=== PATIENT | female | born 2005 | race Two or more races ===

== ENCOUNTER 2024-07-29 04:46 | Emergency (ER) | payer MEDICAID, SELFPAY ==
[2024-07-29 04:56] VITALS: BP 133/88; PULSE 117; RESP 20; TEMP 36.8; O2SAT 96; BMI 31.2
[2024-07-29 05:08] LABS: Appearance Urine Slightly Cloudy (Clear); Bilirubin Urine Negative (Negative); Blood Urine 2+ (Negative); Color Urine Yellow (Yellow); Glucose Urine Negative (Negative); Ketones Urine Negative (Negative); Leukocyte Esterase Urine Negative (Negative); Nitrite Urine Negative (Negative); Protein Urine Negative (Negative); Urobilinogen Urine 0.2 (0.2-1.0)
--- NOTE | 2024-07-29 05:12 | ED.GENADULT ---
HPI - General Adult General Date Seen: 07/29/24 <Angelita Angel MD - Last Filed: 07/30/24 08:15> Chief complaint: Nausea/Vomiting <Angelita Angel MD - Last Filed: 07/30/24 08:15> Stated complaint: Abdominal pain, vomitting <Angelita Angel MD - Last Filed: 07/30/24 08:15> Time Seen by Provider: 07/29/24 05:06 <Angelita Angel MD - Last Filed: 07/30/24 08:15> History of Present Illness HPI narrative: Patient is a 18-year-old young woman who is a [employer] student originally from [place]. She presents for evaluation of right lower quadrant pain which she says started abruptly around midnight. She vomited once just before the pain started and again about an hour later. She denies diarrhea. Pain has persisted in the same location. She has not had fevers, denies urinary symptoms. She just finished her menses which was normal. She denies any history of sexual activity. No abdominal surgeries, denies other medical history. <Angelita Angel MD - Last Filed: 07/30/24 08:15> Related Data Home medications: Home Medications ?Medication ?Instructions ?Recorded ?Confirmed No Known Home Medications 07/29/24 07/29/24 <Angelita Angel MD - Last Filed: 07/30/24 08:15> Allergies/adverse reactions: Allergies Allergy/AdvReac Type Severity Reaction Status Date / Time No Known Drug Allergies Allergy Verified 07/29/24 06:07 <Angelita Angel MD - Last Filed: 07/30/24 08:15> Review of Systems Status of ROS: Reports: 10 or more systems reviewed and unremarkable except as noted in History and below <Angelita Angel MD - Last Filed: 07/30/24 08:15> [facility] Medical History: Medical History No significant past medical history <Angelita Angel MD - Last Filed: 07/30/24 08:15> Surgical History: Surgical History No significant past surgical history <Angelita Angel MD - Last Filed: 07/30/24 08:15> Social History: Social History Smoking Status: Never smoker Second hand tobacco smoke exposure: No How often do you have a drink containing alcohol: never AUDIT-C Alcohol total score: 0 Non-prescribed substance use: denies use <Angelita Angel MD - Last Filed: 07/30/24 08:15> Exam Narrative: Exam Narrative: Vital signs reviewed In general, alert, nontoxic young woman. Head: Normocephalic, atraumatic. Eyes: Sclera clear. Pupils equal and reactive. ENT: Mucous membranes moist. Neck: Supple without adenopathy. Heart: Regular rate and rhythm without murmur. Lungs: Clear. No increased work of breathing, crackles or wheezes. Abdomen: Soft, nondistended. She has mild right lower quadrant tenderness without rebound guarding or rigidity. Abdomen is otherwise nontender. Tenderness is consistent with McBurney's point. Extremities: Well perfused, pulses intact. No significant edema. Neurologic: Alert, conversant. Speech fluent, face symmetric. Moves all extremities equally. Skin: Warm, dry well perfused. Affect: Normal. <Angelita Angel MD - Last Filed: 07/30/24 08:15> Const: Vital Signs, click to edit/add: Vital Signs - 24 hr 07/29/24 10:00 Pulse Rate [Right Pulse Oximeter] 72 Respiratory Rate 16 Blood Pressure [Ri ght Upper Arm] 118/66 Pulse Oximetry 98 Oxygen Delivery Me thod Room Air <Angelita Angel MD - Last Filed: 07/30/24 08:15> Vital Signs, click to edit/add: Vital Signs - 24 hr 07/29/24 10:00 Pulse Rate [Right Pulse Oximeter] 72 Respiratory Rate 16 Blood Pressure [Ri ght Upper Arm] 118/66 Pulse Oximetry 98 Oxygen Delivery Me thod Room Air <Luis Manuel Gagnon MD - Last Filed: 07/29/24 10:43> Course Course ED Course: Patient presents with several hours of right lower quadrant pain with a couple episodes of vomiting. No diarrhea to more clearly suggest gastroenteritis. She does have tenderness at McBurney's point. Appendicitis is a possibility, other diagnostic considerations would include kidney stone, ovarian cyst or torsion, ectopic , urinary tract infection or pyelonephritis among others. I think it is reasonable to do a CT scan to evaluate for for appendicitis or other pelvic pathology. Will give some Toradol and Zofran for symptomatic relief. Symptomatically, she feels somewhat improved after medications. Her UA is fairly unremarkable, test is negative. Other labs reviewed without significant findings aside from anemia with a hemoglobin of 10.2 baseline not known. I reviewed her CT scans. She has 2 large cystic structures in the abdomen which are presumably of ovarian origin. Radiology read reviewed, they do feel that these are likely 2 cysts rather than 1 cyst and her bladder. I think clinically this makes more sense that she does not have a strong urge to void and had voided shortly prior to CT scan. I spoke with Dr. Beltran, will obtain an ultrasound just to make sure there is no evidence of torsion. She will need additional evaluation per gynecology recommendations. <Angelita Angel MD - Last Filed: 07/30/24 08:15> Reevaluation(s) Time of Reevaluation #1: 09:58 <Luis Manuel Gagnon MD - Last Filed: 07/29/24 10:43> Reevaluation #1: Patient's pain is totally gone away at this point, this likely is because she had 800 mL of urine, and was in acute retention we will leave the catheter and I discussed with , she will see her in follow-up Wednesday or Wednesday, then consider taking the catheter out, and will have consideration for laparoscopic surgery in the future. Tylenol for the discomfort and give her something stronger she wants, but this time she did not want anything for pain. I think if she has increasing abdominal pain fevers chills nausea vomiting she has come back to the emergency room. Her basic metabolic profile was normal, with normal creatinine. Patient is requesting some pain medication go home with 10 tablets of Percocet, is prescribed via instymeds. <Luis Manuel Gagnon MD - Last Filed: 07/29/24 10:43> Time of Reevaluation #2: 10:26 <Luis Manuel Gagnon MD - Last Filed: 07/29/24 10:43> Reevaluation #2: [address] [address] Diagnostic Imaging Report Patient: Na Rivera MR#: [id number] : 2005 Acct:[id number] Loc: ED Service Date: 07/29/[address]: Ordering Physician: Angelita Angel M.D. Date of Service: 07/29/24 Procedure(s): US pelvic TA and TV Accession Number(s): [id number] cc: Angelita Angel M.D.; Provider,Not a Local~ For Patients: As a result of the Cures Act, medical imaging exams and procedure reports are released immediately into your electronic medical record. You may view this report before your referring provider. If you have questions, please contact your health care provider. INDICATION: Large ovarian cysts TECHNIQUE: Ultrasound pelvis transabdominal and transvaginal for better assessment or to better visualize the endometrium. Real-time sonographic images with spectral and color Doppler imaging of the ovaries were obtained. COMPARISON: Same day CT abdomen pelvis. FINDINGS: Uterus: 6.6 x 3.4 x 4.3 centimeters. Normal echotexture of the myometrium. No masses. Endometrium: Transvaginal imaging was performed to better evaluate the endometrium. Endometrial thickness measures 7 mm. No sign of endometrial mass or fluid. Right ovary 12.8 x 6.8 x 10.4 centimeters, with right ovarian cyst measuring 12 x 6.2 x 9.6 centimeters. Some images suggest appearance of papillary projection, but this region demonstrates obtuse angle with the cyst, does not demonstrate internal color flow and is continuous with ovarian tissue, making papillary projection less likely. Left ovary 3.6 x 1.8 x 2.9 centimeters. Normal arterial and venous blood flow is demonstrated in both ovaries. Cul-de-sac: No significant free fluid. IMPRESSION: There is a 12 x 6.2 x 9.6 centimeter cyst in the right ovary (O-RADS 3). The size of the cyst increases risk for right ovarian torsion. If not surgically excised, follow-up ultrasound can be considered in 6 months. Dictated by Wanda Cobb MD @ 07/29/2024 10:08:12 AM (Electronically Signed) I spoke to gynecology again, she was reassured by this and suggested discharge with follow-up with her in the clinic, for discuss surgery, and then also to trial catheter removal. Patient was comfortable this plan will be discharged <Luis Manuel Gagnon MD - Last Filed: 07/29/24 10:43> Vital Signs Vital signs: Initial Vital Signs Temperature 98.2 F 07/29/24 04:56 Temperature Source Temporal Artery Scan 07/29/24 04:56 Pulse Rate 117 H 07/29/24 04:56 Respiratory Rate 20 07/29/24 04:56 Blood Pressure 133/88 07/29/24 04:56 Blood Pressure Mean 103 07/29/24 04:56 Blood Pressure Position Sitting 07/29/24 04:56 Pulse Oximetry 96 07/29/24 04:56 Oxygen Delivery Method Room Air 07/29/24 04:56 Vital Signs Temperature 98.2 F 07/29/24 04:56 Pulse Rate 117 H 07/29/24 04:56 Respiratory Rate 20 07/29/24 04:56 Blood Pressure 133/88 07/29/24 04:56 Pulse Oximetry 96 07/29/24 04:56 Oxygen Delivery Method Room Air 07/29/24 04:56 Temperature 98.2 F 07/29/24 06:26 Pulse Rate 72 07/29/24 10:00 Respiratory Rate 16 07/29/24 10:00 Blood Pressure 118/66 07/29/24 10:00 Pulse Oximetry 98 07/29/24 10:00 Oxygen Delivery Method Room Air 07/29/24 10:00 <Angelita Angel MD - Last Filed: 07/30/24 08:15> Initial Vital Signs Temperature 98.2 F 07/29/24 04:56 Temperature Source Temporal Artery Scan 07/29/24 04:56 Pulse Rate 117 H 07/29/24 04:56 Respiratory Rate 20 07/29/24 04:56 Blood Pressure 133/88 07/29/24 04:56 Blood Pressure Mean 103 07/29/24 04:56 Blood Pressure Position Sitting 07/29/24 04:56 Pulse Oximetry 96 07/29/24 04:56 Oxygen Delivery Method Room Air 07/29/24 04:56 Vital Signs Temperature 98.2 F 07/29/24 04:56 Pulse Rate 117 H 07/29/24 04:56 Respiratory Rate 20 07/29/24 04:56 Blood Pressure 133/88 07/29/24 04:56 Pulse Oximetry 96 07/29/24 04:56 Oxygen Delivery Method Room Air 07/29/24 04:56 Temperature 98.2 F 07/29/24 06:26 Pulse Rate 72 07/29/24 10:00 Respiratory Rate 16 07/29/24 10:00 Blood Pressure 118/66 07/29/24 10:00 Pulse Oximetry 98 07/29/24 10:00 Oxygen Delivery Method Room Air 07/29/24 10:00 <Luis Manuel Gagnon MD - Last Filed: 07/29/24 10:43> Medications Administered Medications: Discontinued Medications Generic Name Dose Route Start Last Admin Trade Name Freq PRN Reason Stop Dose Admin Sodium Chloride 500 mls @ 500 mls/hr 07/29/24 05:11 07/29/24 06:10 0.9 % Sodium Chloride 500 Ml IV 07/29/24 06:10 Infused .Q1H ONE Infusion Ketorolac Tromethamine 15 mg 07/29/24 05:11 07/29/24 05:16 Ketorolac 15 Mg/Ml Inj IVP 07/29/24 05:12 15 mg ONCE ONE Administration Morphine Sulfate 4 mg 07/29/24 07:53 07/29/24 07:58 Morphine 4 Mg/Ml Inj IVP 07/29/24 07:54 4 mg ONCE ONE Administration Ondansetron HCl 4 mg 07/29/24 05:11 07/29/24 05:16 Ondansetron 2 Mg/Ml Inj IVP 07/29/24 05:12 4 mg ONCE ONE Administration <Angelita Angel MD - Last Filed: 07/30/24 08:15> Discontinued Medications Generic Name Dose Route Start Last Admin Trade Name Freq PRN Reason Stop Dose Admin Sodium Chloride 500 mls @ 500 mls/hr 07/29/24 05:11 07/29/24 06:10 0.9 % Sodium Chloride 500 Ml IV 07/29/24 06:10 Infused .Q1H ONE Infusion Ketorolac Tromethamine 15 mg 07/29/24 05:11 07/29/24 05:16 Ketorolac 15 Mg/Ml Inj IVP 07/29/24 05:12 15 mg ONCE ONE Administration Morphine Sulfate 4 mg 07/29/24 07:53 07/29/24 07:58 Morphine 4 Mg/Ml Inj IVP 02/15/25 07:54 4 mg ONCE ONE Administration Ondansetron HCl 4 mg 07/29/24 05:11 07/29/24 05:16 Ondansetron 2 Mg/Ml Inj IVP 07/29/24 05:12 4 mg ONCE ONE Administration <Luis Manuel Gagnon MD - Last Filed: 07/29/24 10:43> Medical Decision Making Lab Data Lab results reviewed: Yes I reviewed the patient's lab results <Angelita Angel MD - Last Filed: 07/30/24 08:15> Labs: Lab Results 07/29/24 07/29/24 Range/Units 04:58 05:15 WBC 7.47 (4.50-11.00) K/uL RBC 4.82 (4.00-5.20) m/uL Hgb 10.2 L (12.0-16.0) gm/dL Hct 34.7 (33.0-51.0) % MCV 72 L (80-100) fL MCH 21 L (26-34) pg MCHC 29 L (32-36) gm/dL RDW Coeff of Claudio 15.6 H (11.5-15.5) % Plt Count 358 (140-440) K/uL Neut % (Auto) 80.2 H (42.0-72.0) % Lymph % (Auto) 14.5 L (20-44) % Quay % (Auto) 3.6 (0.0-11.0) % Eos % (Auto) 0.3 (0.0-7.0) % Baso % (Auto) 0.3 (0.0-3.0) % Neut # (Auto) 6.00 (1.7-7.0) K/uL Lymph # (Auto) 1.10 (0.90-2.90) K/uL Quay # (Auto) 0.30 (0.00-0.90) K/UL Eos # (Auto) 0.02 (0.00-0.50) K/uL Baso # (Auto) 0.02 (0.00-0.30) K/uL Abs Immat Gran (auto) 0.08 (0.00-0.30) K/uL Imm/Tot Granulo (auto) 1.1 % Sodium 140 (135-149) mmol/L Potassium 3.8 (3.6-5.1) mmol/L Chloride 105 (96-114) mmol/L Carbon Dioxide 22 (20-32) mmol/L Anion Gap 13 (7-15) mEq/L BUN 7 (5-24) mg/dL Creatinine 0.4 L (0.5-1.5) mg/dL Estimated Creat Clear 161.15 Estimated GFR 145 ml/min Glucose 133 H (60-115) mg/dL Calcium 9.4 (8.4-10.6) mg/dL Lactate Dehydrogenase 225 (120-246) U/L C-Reactive Protein < 0.5 L (0.5-1.0) mg/dL Urine Color Yellow (Yellow) Urine Appearance Slightly Cloudy A (Clear) Urine pH 8.0 (5.0-8.5) Ur Specific Benton 1.020 (1.000-1.030) Urine Protein Negative (Negative) Urine Glucose (UA) Negative (Negative) Urine Ketones Negative (Negative) Urine Blood 2+ A (Negative) Urine Nitrite Negative (Negative) Urine Bilirubin Negative (Negative) Urine Urobilinogen 0.2 (0.2-1.0) Ur Leukocyte Esterase Negative (Negative) Urine RBC 2-5 A (0-2) Urine WBC 0-2 (0-5) Ur Squamous Epith Cells Few (None-Few) Urine Bacteria None (None) Urine HCG, Qual Negative (Negative) <Angelita Angel MD - Last Filed: 07/30/24 08:15> Lab Results 07/29/24 07/29/24 Range/Units 04:58 05:15 WBC 7.47 (4.50-11.00) K/uL RBC 4.82 (4.00-5.20) m/uL Hgb 10.2 L (12.0-16.0) gm/dL Hct 34.7 (33.0-51.0) % MCV 72 L (80-100) fL MCH 21 L (26-34) pg MCHC 29 L (32-36) gm/dL RDW Coeff of Claudio 15.6 H (11.5-15.5) % Plt Count 358 (140-440) K/uL Neut % (Auto) 80.2 H (42.0-72.0) % Lymph % (Auto) 14.5 L (20-44) % Quay % (Auto) 3.6 (0.0-11.0) % Eos % (Auto) 0.3 (0.0-7.0) % Baso % (Auto) 0.3 (0.0-3.0) % Neut # (Auto) 6.00 (1.7-7.0) K/uL Lymph # (Auto) 1.10 (0.90-2.90) K/uL Quay # (Auto) 0.30 (0.00-0.90) K/UL Eos # (Auto) 0.02 (0.00-0.50) K/uL Baso # (Auto) 0.02 (0.00-0.30) K/uL Abs Immat Gran (auto) 0.08 (0.00-0.30) K/uL Imm/Tot Granulo (auto) 1.1 % Sodium 140 (135-149) mmol/L Potassium 3.8 (3.6-5.1) mmol/L Chloride 105 (96-114) mmol/L Carbon Dioxide 22 (20-32) mmol/L Anion Gap 13 (7-15) mEq/L BUN 7 (5-24) mg/dL Creatinine 0.4 L (0.5-1.5) mg/dL Estimated Creat Clear 161.15 Estimated GFR 145 ml/min Glucose 133 H (60-115) mg/dL Calcium 9.4 (8.4-10.6) mg/dL Lactate Dehydrogenase 225 (120-246) U/L C-Reactive Protein < 0.5 L (0.5-1.0) mg/dL Urine Color Yellow (Yellow) Urine Appearance Slightly Cloudy A (Clear) Urine pH 8.0 (5.0-8.5) Ur Specific Benton 1.020 (1.000-1.030) Urine Protein Negative (Negative) Urine Glucose (UA) Negative (Negative) Urine Ketones Negative (Negative) Urine Blood 2+ A (Negative) Urine Nitrite Negative (Negative) Urine Bilirubin Negative (Negative) Urine Urobilinogen 0.2 (0.2-1.0) Ur Leukocyte Esterase Negative (Negative) Urine RBC 2-5 A (0-2) Urine WBC 0-2 (0-5) Ur Squamous Epith Cells Few (None-Few) Urine Bacteria None (None) Urine HCG, Qual Negative (Negative) <Luis Manuel S Seper, MD - Last Filed: 07/29/24 10:43> Imaging Data CT scan - abdomen: Attestation: I have reviewed the pertinent imaging results. <Angelita Angel MD - Last Filed: 07/30/24 08:15> Radiologist's impression: [address] [address] Diagnostic Imaging Report Patient: Na Rivera MR#: [id number] : 2005 Acct:[id number] Loc: ED Service Date: 07/29/[address]: Ordering Physician: Angelita Angel M.D. Date of Service: 07/29/24 Procedure(s): CT abdomen pelvis w con Accession Number(s): [id number] cc: Angelita Angel M.D.; Provider,Not a Local~ ADDENDUM INDICATION: Right lower quadrant pain and vomiting. COMPARISON: None. TECHNIQUE: CT of the abdomen and pelvis with intravenous contrast. Multiplanar axial, coronal, and sagittal reformats were reconstructed. Contrast: 79 mL Isovue 370. FINDINGS: Lung bases: Normal. Liver: Normal. No mass. Gallbladder and bile ducts: Normal gallbladder. No bile duct dilation. Pancreas: Normal. Spleen: Normal. Adrenal glands: Normal. Kidneys: Normal parenchyma. No cyst or solid mass. No calculi. Mild right pelviectasis and proximal ureterectasis. Urinary bladder: The urinary bladder is empty. Pelvis: There are 2 large pelvic cyst the more superior in the right lower quadrant and central abdomen measures 6.5 x 11.8 x 10.6 centimeters. The more inferior and anterior cyst definitely mimics the urinary bladder but is anterior to the bladder base and urethra. See series 2, image 143. This cyst measures 7.0 x 8.2 x 14.0 cm. Neither of the cyst have any macroscopic fat or calcification. No definitive nodular soft tissue components seen by CT but the right ovary is seen between the 2 cysts. See coronal image series 4, image 41. The left ovary is down in the left pelvis and is mildly enlarged with multiple small follicles. Vessels: Normal. Bowel: No dilated or inflamed bowel. Normal appendix, above the superior cyst. No colonic diverticuli. Mild stool burden. Lymph nodes: No adenopathy. Peritoneum: Trace pelvic free fluid. No peritoneal thickening or nodularity appreciated. Abdominal wall: No hernia. Bones: No fractures. No focal worrisome bone lesions. IMPRESSION: 1. There are 2 very large cystic lesions that both appear to arise from the right ovary. These measure 11.8 and 14.0 centimeters. These are too large to be accurately characterized by ultrasound. If further imaging is needed, pelvic MRI without and with IV contrast is recommended. Recommend gynecologic surgical referral. 2. There is some mild right urinary tract dilatation due to mass effect on the ureter between the cyst and the psoas muscle. Please note that all CT scans at this facility use dose modulation, iterative reconstruction, and/or weight-based dosing when appropriate to reduce radiation dose to as low as reasonably achievable. Dictated by Lynn Gann MD @ 07/29/2024 6:39:55 AM ----- ADDENDUM ----- The lower of the 2 cystic structures described could potentially be the bladder, but several series certainly indicate that the bladder is slightly more posterior in compressed. Recommend postvoid imaging to be definitive. Dictated by Lynn Gann MD @ Jul 29 2024 6:40AM (Electronically Signed) For Patients: As a result of the Century Cures Act, medical imaging exams and procedure reports are released immediately into your electronic medical record. You may view this report before your referring provider. If you have questions, please contact your health care provider. INDICATION: Right lower quadrant pain and vomiting. COMPARISON: None. TECHNIQUE: CT of the abdomen and pelvis with intravenous contrast. Multiplanar axial, coronal, and sagittal reformats were reconstructed. Contrast: 79 mL Isovue 370. FINDINGS: Lung bases: Normal. Liver: Normal. No mass. Gallbladder and bile ducts: Normal gallbladder. No bile duct dilation. Pancreas: Normal. Spleen: Normal. Adrenal glands: Normal. Kidneys: Normal parenchyma. No cyst or solid mass. No calculi. Mild right pelviectasis and proximal ureterectasis. Urinary bladder: The urinary bladder is empty. Pelvis: There are 2 large pelvic cyst the more superior in the right lower quadrant and central abdomen measures 6.5 x 11.8 x 10.6 centimeters. The more inferior and anterior cyst definitely mimics the urinary bladder but is anterior to the bladder base and urethra. See series 2, image 143. This cyst measures 7.0 x 8.2 x 14.0 cm. Neither of the cyst have any macroscopic fat or calcification. No definitive nodular soft tissue components seen by CT but the right ovary is seen between the 2 cysts. See coronal image series 4, image 41. The left ovary is down in the left pelvis and is mildly enlarged with multiple small follicles. Vessels: Normal. Bowel: No dilated or inflamed bowel. Normal appendix, above the superior cyst. No colonic diverticuli. Mild stool burden. Lymph nodes: No adenopathy. Peritoneum: Trace pelvic free fluid. No peritoneal thickening or nodularity appreciated. Abdominal wall: No hernia. Bones: No fractures. No focal worrisome bone lesions. IMPRESSION: 1. There are 2 very large cystic lesions that both appear to arise from the right ovary. These measure 11.8 and 14.0 centimeters. These are too large to be accurately characterized by ultrasound. If further imaging is needed, pelvic MRI without and with IV contrast is recommended. Recommend gynecologic surgical referral. 2. There is some mild right urinary tract dilatation due to mass effect on the ureter between the cyst and the psoas muscle. Please note that all CT scans at this facility use dose modulation, iterative reconstruction, and/or weight-based dosing when appropriate to reduce radiation dose to as low as reasonably achievable. Dictated by Lynn Gann MD @ 07/29/2024 6:39:55 AM <Angelita Angel MD - Last Filed: 07/30/24 08:15> Discharge Plan Discharge Clinical Impression: Ovarian cyst, Abdominal pain, Acute urinary retention <Angelita Angel MD - Last Filed: 07/30/24 08:15> Patient Disposition: Home, Self-Care <Angelita Angel MD - Last Filed: 07/30/24 08:15> Condition: Improved <Angelita Angel MD - Last Filed: 07/30/24 08:15> Instructions: Ovarian Cyst (ED), Negron Catheter Placement and Care (ED), Acute Urinary Retention in Women (ED), Abdominal Pain (ED), Ovarian Cyst Removal (DC) <Angelita Angel MD - Last Filed: 07/30/24 08:15> Additional Instructions: Arrest, leave catheter in. Follow-up with gynecology Wednesday or Wednesday, per that discussion. At that point take consider pulling out the catheter. Return back here if increasing abdominal pain, fevers chills, or other issues. I would recommend Tylenol, 1 g by mouth twice daily. This will help with the discomfort from the catheter. I can give you something stronger if you want such as a morphine base medication if you find that is helpful but I believe your pain just improved with the catheterization. Return back here if increasing abdominal pain fevers chills nausea vomiting, or other issues. <Angelita Angel MD - Last Filed: 07/30/24 08:15> Activity Level: Light activity <Angelita Angel MD - Last Filed: 07/30/24 08:15> Light activity <Luis Manuel Gagnon MD - Last Filed: 07/29/24 10:43> Prescriptions: No Action No Known Home Medications <Angelita Angel MD - Last Filed: 07/30/24 08:15> Follow Up/Referrals: Provider,Not a Local [Primary Care Provider] - Nadiya Beltran MD [Staff Physician] - <Angelita Angel MD - Last Filed: 07/30/24 08:15> Stand Alone Forms: [facility] Info Instructions <Angelita Angel MD - Last Filed: 07/30/24 08:15>
[2024-07-29 05:15] LABS: Squamous Epithelial Cell Urine Few (None-Few); WBC Urine 0-2 (0-5)
[2024-07-29] MEDS: KETOROLAC 15 MG/ML inj IVP (05:16)
[2024-07-29] MEDS: ONDANSETRON 2 MG/ML inj 4 MG IVP (05:16)
[2024-07-29] MEDS: 0.9 % SODIUM CHLORIDE 500 ML 500 ML IV (05:16)
[2024-07-29 06:01] LABS: Ur HCG Qualitative* Negative (Negative)
[2024-07-29 06:26] VITALS: TEMP 36.8
[2024-07-29 06:27] LABS: Basophils Absolute Auto 0.02 K/uL (0.00-0.30); Basophils Percent Auto 0.3 % (0.0-3.0); Eosinophils Absolute Auto 0.02 K/uL (0.00-0.50); Eosinophils Percent Auto 0.3 % (0.0-7.0); Hematocrit 34.7 % (33.0-51.0); Hemoglobin* 10.2 gm/dL (12.0-16.0); Immature Granulocytes Abs Auto 0.08 K/uL (0.00-0.30); Immature Granulocytes Pct Auto 1.1 %; Lymphocytes Percent Auto 14.5 % (20-44); Mean Corpuscular HGB Conc 29 gm/dL (32-36); Mean Corpuscular Hemoglobin 21 pg (26-34); Mean Corpuscular Volume 72 fL (80-100); Monocytes Percent Auto 3.6 % (0.0-11.0); Neutrophils Percent Auto 80.2 % (42.0-72.0); Platelet Count* 358 K/uL (140-440); RDW Coefficient of Variation % 15.6 % (11.5-15.5); Red Blood Count 4.82 m/uL (4.00-5.20); White Blood Count* 7.47 K/uL (4.50-11.00)
[2024-07-29 06:40] LABS: Slide Review Reflex No
[2024-07-29 06:44] LABS: Chloride* 105 mmol/L (96-114); Potassium* 3.8 mmol/L (3.6-5.1); Sodium* 140 mmol/L (135-149)
[2024-07-29 06:47] LABS: Anion Gap 13 mEq/L (7-15); Blood Urea Nitrogen* 7 mg/dL (5-24); Carbon Dioxide* 22 mmol/L (20-32); Creatinine* 0.4 mg/dL (0.5-1.5); Est. Creatinine Clearance* 161.15; Estimated Glomerular Filt Rate 145 ml/min
[2024-07-29 06:48] LABS: Calcium* 9.4 mg/dL (8.4-10.6); Glucose* 133 mg/dL (60-115)
[2024-07-29 06:56] LABS: C Reactive Protein* < 0.5 mg/dL (0.5-1.0)
[2024-07-29 07:54] VITALS: BP 116/68; PULSE 89; RESP 16; O2SAT 97
[2024-07-29] MEDS: MORPHINE 4 MG/ML INJ IVP (07:58)
[2024-07-29 08:23] LABS: Lactate Dehydrogenase* 225 U/L (120-246)
[2024-07-29 10:00] VITALS: BP 118/66; PULSE 72; RESP 16; O2SAT 98
--- NOTE | 2024-07-29 10:41 | PM.GYNCN1 ---
WOOD BUFFER - CN: HPI Data of Consult Time Seen by Provider: 08:00 Date Seen: 07/29/24 Patient: Other Consult date: 07/29/24 Primary Care Provider: Not a Local Provider Consult Narrative Reason for consult: pelvic mass Narrative: Na Ding is a 18 year old female G0 who presented to the ED for acute RLQ pain and 2 episode of emesis. Na reports that for months now she had rare intermittent episodes of right abdominal discomfort. These episodes would self resolve within 5-10 minutes and she never needed to take any medicine for pain control. However, around midnight, she had abdominal pain, more on right side, that wasn't resolving within the time frame she was expecting. She described this episode as more sharp and causing nausea and an episode of small volume emesis. She had another episode of emesis an hour later and decided to seek care at the ED. Patient denies fever, chills, chest pain, SOB, headache, or dizziness. Denies diarrhea, abnormal vaginal bleeding, abnormal vaginal discharge, urinary frequency, hematuria, or dysuria. She just finished her menstrual cycle, which was normal. Her pain had improved with Ketorolac and morphine but not completely resolved. Informed patient that I was contacted due to abnormal findings on CTAP that was obtained. IMPRESSION: 1. There are 2 very large cystic lesions that both appear to arise from the right ovary. These measure 11.8 and 14.0 centimeters. These are too large to be accurately characterized by ultrasound. If further imaging is needed, pelvic MRI without and with IV contrast is recommended. Recommend gynecologic surgical referral. 2. There is some mild right urinary tract dilatation due to mass effect on the ureter between the cyst and the psoas muscle. Tumor markers pending. Reviewed CT with patient. The two cystic lesions appear distinct from each other. One of the cyst looked like her bladder. Patient feels she voids normally with normal amount. Denies need to void currently. I recommended Hernandez cath to ensure she does not have urinary retention. Recommended pelvic US to assess for ovarian torsion. Patient was taken for pelvic US. RN report that patient had 800 cc of UOP via hernandez catheter. Patient's pain completely resolved after catheterization. Pelvic US showed: Uterus: 6.6 x 3.4 x 4.3 centimeters. Normal echotexture of the myometrium. No masses. Endometrium: Transvaginal imaging was performed to better evaluate the endometrium. Endometrial thickness measures 7 mm. No sign of endometrial mass or fluid. Right ovary 12.8 x 6.8 x 10.4 centimeters, with right ovarian cyst measuring 12 x 6.2 x 9.6 centimeters. Some images suggest appearance of papillary projection, but this region demonstrates obtuse angle with the cyst, does not demonstrate internal color flow and is continuous with ovarian tissue, making papillary projection less likely. Left ovary 3.6 x 1.8 x 2.9 centimeters. Normal arterial and venous blood flow is demonstrated in both ovaries. Cul-de-sac: No significant free fluid. IMPRESSION: There is a 12 x 6.2 x 9.6 centimeter cyst in the right ovary (O-RADS 3). The size of the cyst increases risk for right ovarian torsion. If not surgically excised, follow-up ultrasound can be considered in 6 months. Discussed with patient pelvic US findings. Given that she does not have acute torsion, she does not need surgery emergently. However, I recommend pursuing surgical removal given that a cyst this size (>5 cm) is unlikely to spontaneously resolve, it could be a cause for her urinary retention, and there's a possibility to intermittent torsion. Plan: - Will discharge with hernandez cath - F/u with [facility] either Wednesday or Wednesday for voiding trial and surgical consult - Torsion/cyst rupture precautions given: Present to the ED if sudden/severe pain in the lower abdomen, nausea and vomiting, fever, abnormal vaginal bleeding or discharge etc. All questions answered to the best of my abilities. cc:: CC: [facility] Medical History No significant past medical history Surgical History No significant past surgical history Social History Smoking Status: Never smoker Second hand tobacco smoke exposure: No How often do you have a drink containing alcohol: never AUDIT-C Alcohol total score: 0 Non-prescribed substance use: denies use Meds Home Medications and Allergies Home Medications ?Medication ?Instructions ?Recorded ?Confirmed ?Type No Known Home Medications 07/29/24 07/29/24 History Allergies Allergy/AdvReac Type Severity Reaction Status Date / Time No Known Drug Allergies Allergy Verified 07/29/24 06:07 WOOD BUFFER - Exam Physical Exam: Vital signs: Temp Pulse Resp BP Pulse Ox O2 Del Method 98.2 F 89 16 116/68 97 Room Air 07/29/24 06:26 07/29/24 07:54 07/29/24 07:54 07/29/24 07:54 07/29/24 07:54 07/29/24 07:54 WOOD BUFFER - Results Labs Labs: Short CBC 07/29/24 Range/Units 05:15 WBC 7.47 (4.50-11.00) K/uL Hgb 10.2 L (12.0-16.0) gm/dL Hct 34.7 (33.0-51.0) % Plt Count 358 (140-440) K/uL BMP 07/29/24 05:15 Sodium 140 Potassium 3.8 Chloride 105 Carbon Dioxide 22 BUN 7 Creatinine 0.4 L Glucose 133 H Calcium 9.4 Urine 07/29/24 Range/Units 04:58 Urine Color Yellow (Yellow) Urine Appearance Slightly Cloudy A (Clear) Urine pH 8.0 (5.0-8.5) Ur Specific Brinson 1.020 (1.000-1.030) Urine Protein Negative (Negative) Urine Glucose (UA) Negative (Negative)
[2024-07-30 14:27] LABS: Alpha Fetoprotein Tumor Marker 2 ng/mL (0-9)
[2024-07-30 20:25] LABS: Beta-hCG Quant Tumor Marker <1 IU/L (0-5); Cancer Antigen 125 27 U/mL (<=38); Cancer Antigen-GI (CA 19-9) 7 U/mL (<=35); Carcinoembryonic Antigen 0.7 ng/mL (<=3.8)
[2024-08-03 00:39] LABS: Inhibin B 78 pg/mL (8-223)
== END 2024-07-29 11:29 | disposition home or self-care (01) ==
PROVIDERS: Emergency Medicine; Obstetrics & Gynecology; Emergency Provider Family Medicine
DX: N83.201 Unspecified ovarian cyst, right side (principal); R33.9 Retention of urine, unspecified
CPT/HCPCS: 51702; 36415; 74177; 76830; 76856; 80048; 81001; 81025; 82105; 82378; 83520; 83615; 84704; 85025; 86140; 86301; 86304; 86336; 93976; 96374; 96375; 99284; 99285; J1885; J2270; J2405; J7030; Q9967

== ENCOUNTER 2024-07-30 14:01 | Emergency (ER) | payer MEDICAID, SELFPAY ==
[2024-07-30 14:05] VITALS: BP 133/79; PULSE 124; RESP 16; TEMP 37.1; O2SAT 96; BMI 31.2
--- NOTE | 2024-07-30 14:16 | ED.GENADULT ---
HPI - General Adult General Chief complaint: Urogenital Problems, Female Stated complaint: Catheter issue Time Seen by Provider: 07/30/24 14:12 Source: patient Mode of arrival: ambulatory Limitations: no limitations History of Present Illness HPI narrative: 18-year-old female presenting today with concerns about her catheter placement. Patient was found to have a large ovarian cyst yesterday with urinary retention. Negron catheters placed and yesterday was uneventful. Today however patient noticed that her Negron is more uncomfortable and that she rear needed around the Negron catheter. She denies fevers or vaginal discharge no increase in her abdominal pain. She is requesting to have her catheter examined. Related Data Home Medications ?Medication ?Instructions ?Recorded ?Confirmed No Known Home Medications 07/29/24 07/30/24 Allergies Allergy/AdvReac Type Severity Reaction Status Date / Time No Known Drug Allergies Allergy Verified 07/30/24 14:11 Review of Systems Status of ROS: Reports: 6 or more systems reviewed and unremarkable except as noted in History and below PFSH [facility] Medical History No significant past medical history Surgical History No significant past surgical history Social History Smoking Status: Never smoker Second hand tobacco smoke exposure: No How often do you have a drink containing alcohol: never AUDIT-C Alcohol total score: 0 Non-prescribed substance use: denies use Exam Narrative: Exam Narrative: Well-nourished well-developed patient in no acute distress. Alert and oriented. Answers questions appropriately. Mood and affect are appropriate. Thoughts are goal oriented and rational. No tangential or magical thinking noted. Patient speaks in full sentences without needing to catch her breath. Patient does not appear ill or toxic. She is a bit anxious. HEENT: Normocephalic atraumatic. Pupils are equally round reactive to light. Extraocular muscles are intact. Conjunctivae are moist without any icterus noted. Moist mucous membranes. Abdomen: Soft and nontender nondistended with normal bowel sounds. Const: Vital Signs, click to edit/add: Vital Signs - 24 hr 07/30/24 14:05 Temperature 98.7 F Pulse Rate [Pulse Oximeter] 124 H Respiratory Rate 16 Blood Pressure [Ri ght Upper Arm] 133/79 Pulse Oximetry 96 Oxygen Delivery Me thod Room Air Course Course ED Course: Her catheter was changed in the ER today. Vital Signs Vital signs: Initial Vital Signs Temperature 98.7 F 07/30/24 14:05 Temperature Source Temporal Artery Scan 07/30/24 14:05 Pulse Rate 124 H 07/30/24 14:05 Respiratory Rate 16 07/30/24 14:05 Blood Pressure 133/79 07/30/24 14:05 Blood Pressure Mean 97 07/30/24 14:05 Blood Pressure Position Sitting 07/30/24 14:05 Pulse Oximetry 96 07/30/24 14:05 Oxygen Delivery Method Room Air 07/30/24 14:05 Vital Signs Temperature 98.7 F 07/30/24 14:05 Pulse Rate 124 H 07/30/24 14:05 Respiratory Rate 16 07/30/24 14:05 Blood Pressure 133/79 07/30/24 14:05 Pulse Oximetry 96 07/30/24 14:05 Oxygen Delivery Method Room Air 07/30/24 14:05 Temperature 98.7 F 07/30/24 14:05 Pulse Rate 124 H 07/30/24 14:05 Respiratory Rate 16 07/30/24 14:05 Blood Pressure 133/79 07/30/24 14:05 Pulse Oximetry 96 07/30/24 14:05 Oxygen Delivery Method Room Air 07/30/24 14:05 Medical Decision Making MDM Narrative Medical decision making narrative: Discomfort a Negron catheter. The catheter changed in the ED today. Will follow-up with OBGYN as scheduled. Discharge Plan Discharge Clinical Impression: Negron catheter problem Patient Disposition: Home, Self-Care Condition: Stable Additional Instructions: Follow-up with OBGYN as scheduled. Prescriptions: No Action No Known Home Medications Follow Up/Referrals: Provider,Not a Local [Primary Care Provider] - Stand Alone Forms: [email or web address] Info Instructions
== END 2024-07-30 14:54 | disposition home or self-care (01) ==
PROVIDERS: Emergency Provider Family Medicine
DX: T83.84XA Pain due to genitourinary prosthetic devices, implants and grafts, initial encounter (principal); G89.18 Other acute postprocedural pain
CPT/HCPCS: 51702; 99282; 99284

== ENCOUNTER 2024-08-09 06:03 | Day surgery (SDC) | payer MEDICAID, SELFPAY ==
[2024-08-09] VITALS (13 sets, daily range): BP systolic 80–124; BP diastolic 48–80; PULSE 77–104; RESP 16–18; TEMP 36.7–37.3; O2SAT 93–100; BMI 31.0
[2024-08-09] MEDS: SODIUM CHLORIDE 0.9 % (FLUSH) 10 ML SYRINGE IVF (06:35)
[2024-08-09] MEDS: LACTATED RINGERS 1000 ML 1,000 ML 100 ML IV (06:35)
[2024-08-09 06:37] LABS: Hemoglobin* 9.8 gm/dL (12.0-16.0)
--- NOTE | 2024-08-09 07:01 | W.PM.H&PU ---
History & Physical Update History & Physical Update H&P Reviewed and patient assessed: The following changes are noted below H&P Updates: Patient endorses she feels well and significantly better after Negron cath removal in clinic. She has no pain, fever, chills, abnormal vaginal bleeding or discharge. No hematuria or dysuria. Notably, she continues to be anemic at 9.8 gm/dL. Although, relatively stable from 07/29/24 where Hgb was 10.2 gm/dL. Denies signs of symptoms of anemia. Will assess intraabdominally for source. Will d/c on PO iron and reassess.
[2024-08-09 07:19] LABS: HCG Qualitative Serum* Negative (Negative)
[2024-08-09 07:26] LABS: Basophils Absolute Auto 0.02 K/uL (0.00-0.30); Basophils Percent Auto 0.3 % (0.0-3.0); Eosinophils Absolute Auto 0.19 K/uL (0.00-0.50); Eosinophils Percent Auto 2.7 % (0.0-7.0); Hematocrit 32.7 % (33.0-51.0); Immature Granulocytes Abs Auto 0.01 K/uL (0.00-0.30); Immature Granulocytes Pct Auto 0.1 %; Lymphocytes Absolute Auto 2.48 K/uL (0.90-2.90); Mean Corpuscular HGB Conc 29 gm/dL (32-36); Mean Corpuscular Hemoglobin 21 pg (26-34); Mean Corpuscular Volume 73 fL (80-100); Monocytes Percent Auto 9.9 % (0.0-11.0); Neutrophils Absolute Auto 3.69 K/uL (1.7-7.0); Platelet Count* 353 K/uL (140-440); RDW Coefficient of Variation % 15.8 % (11.5-15.5); Red Blood Count 4.48 m/uL (4.00-5.20); White Blood Count* 7.09 K/uL (4.50-11.00)
[2024-08-09 07:30] LABS: Slide Review Reflex No
[2024-08-09 07:36] LABS: Iron* 39 ug/dL (37-170)
[2024-08-09 07:45] LABS: Percent Iron Saturation 7 % (20-50); Total Iron Binding Capacity 546 ug/dL (265-497)
[2024-08-09] MEDS: BUPIVACAINE 0.5 %/EPI 1:200K 30 ML INJECTION (08:15)
--- NOTE | 2024-08-09 09:03 | W.ANESCHARGE ---
Anesthesia Charges Start Date/Time Anesthesia Start Date: 08/09/24 Anesthesia Start Time: 07:21 Stop Date/Time Anesthesia Stop Date: 08/09/24 Anesthesia Stop Time: 09:03 Coding CPT Codes CPT Codes: ANESTH SURG LOWER ABDOMEN - 41769 ([id number]) P1 - NORMAL HEALTHY PATIENT, QZ - DIRECTOR SECURITY RISK MANAGEMENT SVC W/O FORGING ENGINEER BY
--- NOTE | 2024-08-09 09:08 | PM.GYNPRLA ---
Procedure Pre-op/Post-op diagnoses: Pre-Op/Post-Op Diagnoses Operation Date: 08/09/24 07:15 <No data on this case meets the specified criteria> Procedure: Procedures Operation Date: 08/09/24 07:15 Actual Procedure Side Surgeon p diagnostic Laparoscopy, Right Oophorectomy Right Nadiya Beltran MD Job Specification Writer: Rose Justin Estimated blood loss (mL): 5 Anesthesia Type: General and Local Complications: none Specimen: other (1. Right ovary with cyst 2. Peritoneal fluid ) Findings: On exam under anesthesia: Normal appearing external genitalia. Unable to assess uterus/adnexa adequately due to globalized pelvic fullness. On laparoscopy: Normal appearing uterus, bilateral fallopian tubes and left ovaries. 15 cm right ovarian cyst noted. No discernable normal ovarian tissue. No torsion noted. Posterior cul-de-sac within normal limits with collection of thick yellow fluid. Normal appearing liver and appendix. Right ureter noted intraabdominally. Vermiculation noted before and after oophorectomy. Disposition: same day Narrative: Preoperative diagnosis: Na is a 18 y/o G0 with large right ovarian cyst (>12 cm). Postoperative diagnosis: Same Procedure: Na was taken to the operating room where general anesthetic was found to be adequate. She was placed in the dorsal lithotomy position and an exam under anesthesia was performed with findings stated above. She was then prepped and draped in a normal sterile manner. A Negron catheter was placed. A sponge stick was placed vaginally for uterine manipulation. All incisions were infiltrated with 0.25% bupivacaine with epinephrine prior to incising the skin. A vertical, infraumbilical 5 mm incision was made. A 5 mm trocar was then placed under direct visualization. The abdomen was then insufflated with CO2 gas to a pressure of 15 mm of mercury. An 11 mm pelvic port was placed approximately 3-4 finger breaths medial to the left ischial crests. T A 3rd port was made in the patient's left lower quadrant, just superior medial to the left ASIS. A 5 mm Fios Kii port was inserted under direct visualization and without complication. The balloon on each of the 3 ports was inflated, holding each in place. These were placed under direct visualization. Dark peritoneal fluid was aspirated and sent for cytology. Decision was made to pursue oophorectomy instead of cystectomy due to the size of the ovarian cyst and no normal ovarian tissue could be identified. Attention was then turned to performing the right oophorectomy. The right fallopian tube was grasped, dissected off the right ovary and removed with sequential pedicles using the dissecting, ligasure [place] tip dissecting forceps. The infundibular ligament was identified. The ureter was visualized along the pelvic side wall with vermiculation noted. The ligasure was was then used to have a clamp, cauterize the IP ligament in sequential overlapping pedicles to secure blood supply prior to ligation. The IP was then ligated and the pedicle inspected for hemostasis. After, oophorectomy right ureter was noted to be vermiculating again. Balloon from left lower quadrant trocar was deflated and a left lower quadrant trocar was removed. A large Endo-Catch bag was placed through the 11 mm port. Endo-Catch bag was deployed and the right ovary was secured into Endo-Catch bag. Right ovary was brought up to the incision site and fluid in the cyst was decompressed to allow for removal of the ovary from the abdomen. Right ovary was removed in the endo-catch bag. No defect noted in in the bag. The fascia in the LLQ incision was approximated with 0-Vicryl suture using the Ham Thomasen fascial closure device. This was closed under direct visualization with the laparoscope. Attention was then returned to the abdomen where hemostasis was verified. All pedicles were assessed for hemostasis under low pressure. All trocars were removed under direct visualization. CO2 gas was allowed to escape the infraumbilical port prior to its removal. All skin incisions were re-approximated using 4-0 Monocryl in a running subcuticular manner, Exophin skin adhesive gel and adhesive bandages placed. The patient tolerated this procedure well. Sponge, lap and instrument counts were correct x2 at the end of the procedure and the patient was taken to the recovery area in stable condition.
[2024-08-09] MEDS: fentaNYL 100 MCG/2 ML inj 50 MCG IVP (09:21)
[2024-08-09] MEDS: OXYCODONE 5 MG TABLET PO (09:59)
== END 2024-08-09 10:48 | disposition home or self-care (01) ==
PROVIDERS: Visit Provider Obstetrics & Gynecology
PROC: (CPT 58662; principal; 2024-08-09 07:15)
DX: N83.291 Other ovarian cyst, right side (principal); R33.8 Other retention of urine
CPT/HCPCS: 58661; 00840; 36415; 81025; 83540; 83550; 84703; 85018; 85025; 86850; 86900; 86901; 88112; 88305; 88307; A9270; J0330; J1100; J1630; J1885; J2250; J2405; J2704; J3010; J3490; J7120

== ENCOUNTER 2024-08-23 14:05 | Outpatient (CLI) | payer MEDICAID, SELFPAY | END 2024-08-23 14:06 | disposition home or self-care (01) | LOC: NFLDREF 08-25 04:19 | PROVIDERS: Visit Provider Obstetrics & Gynecology | DX: D64.9 Anemia, unspecified (principal); Z48.89 Encounter for other specified surgical aftercare | CPT/HCPCS: 82728 ==